=== PATIENT | female | born 1955 | race African-American/Black ===

== ENCOUNTER → 2018-01-16 | Outpatient (CLI) | payer BC ==
[~2018-01-16] MED LIST: DIAZEPAM 5 MG TABLET ONE
--- NOTE | 2018-01-16 13:33 | RADIOLOGY REPORT (SQ) ---
EXAM DESCRIPTION: MRI HEAD COMBO COMPLETED DATE/TIME: 01/16/2018 11:18 am REASON FOR STUDY: COGNITIVE IMPAIRMENT (R41.89) R41.89 OTH SYMPTOMS AND SIGNS W COGNITIVE FUNCTIONS AND AWAR COMPARISON: CT brain 07/01/2013 TECHNIQUE: Multiplanar imaging includes noncontrasted T1, T2, FLAIR, diffusion with ADC map and post gadolinium contrast T1 sequences. Images stored on PACS. CONTRAST TYPE AND DOSE: 15 mL Multihance. RENAL FUNCTION: GFR > 60. LIMITATIONS: None. FINDINGS: ANATOMY: No anomalies. Normal vascular flow voids. Pituitary fossa normal. CSF SPACES: Normal in size and contour. No hemorrhage. CEREBRUM: Sulci and gyri normal in size and contour. Normal white matter signal on FLAIR imaging. No evidence of hemorrhage, mass, or extraaxial fluid collection. No abnormal enhancement post contrast. POSTERIOR FOSSA: No signal alteration. No hemorrhage. No edema, masses, or mass effect. Internal darian tory canals, cerebellopontine angles, mastoids normal. No enhancing lesions. No abnormal enhancement post contrast. DIFFUSION IMAGING: Negative for acute or subacute infarction. ORBITS: No masses. Globes normal. PARANASAL SINUSES: No fluid levels. Mucosa normal. OTHER: No other significant finding. IMPRESSION: NORMAL MRI OF THE BRAIN WITHOUT AND WITH INTRAVENOUS GADOLINIUM CONTRAST. EVIDENCE OF ACUTE STROKE: NO. TECHNICAL DOCUMENTATION: JOB ID: [id number]- All Rights Reserved Reading location - IP/workstation name: [email or web address]
== END ==
LOC: RAD 01-12 07:15
PROVIDERS: ATTEND Psychiatry & Neurology Neurology
DX: R41.89 Other symptoms and signs involving cognitive functions and awareness (principal)
CPT/HCPCS: 82565; 70553; A9577

== ENCOUNTER 2018-08-10 05:13 | Emergency (ER) | payer BC ==
[2018-08-10 05:25] VITALS: BP 189/61
[2018-08-10] MEDS ORDERED: IBUPROFEN 600 MG TABLET PO ONE (05:46)
[2018-08-10] MEDS ORDERED: HYDROCODONE/ACETAMINOPHEN 5-325 MG (6 TAB/ER DISP) PO PRN (05:46)
--- NOTE | 2018-08-10 05:54 | ER Document Report ---
HPI - HPI Patient complains to provider of: Neck pain, left shoulder pain Time Seen by Provider: 08/10/18 05:28 Pain Level: 3 Context: Patient is a 63-year-old female that comes to the emergency department for chief complaint of 2 days of worsening tightness in her left upper shoulder and neck area, she states it is hard to turn her neck side to side or move without pain. She states it feels like she is having muscle spasms. 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 She denies any numbness, headache, incontinence, fever. She denies any other locations of pain. She was previously on blood pressure medication but has not been back to primary care to get a refill. She denies any other medical history. - NEURO Neurology: DENIES: Headache, Weakness, Vision blurred, Dizzinesss / Vertigo - REPRODUCTIVE Reproductive: DENIES: : Past Medical History - General Information source: Patient - Social History Smoking Status: Never Smoker Chew tobacco use (# tins/day): No Frequency of alcohol use: None Drug Abuse: None Lives with: Family Family History: Reviewed & Not Pertinent Patient has suicidal ideation: No Patient has homicidal ideation: No - Past Medical History Cardiac Medical History: Reports: Hx Hypertension Denies: Hx Coronary Artery Disease, Hx Heart Attack Pulmonary Medical History: Denies: Hx Asthma, Hx Bronchitis, Hx COPD, Hx Pneumonia Neurological Medical History: Denies: Hx Cerebrovascular Accident, Hx Seizures Renal/ Medical History: Denies: Hx Peritoneal Dialysis Musculoskeletal Medical History: Denies Hx Arthritis Past Surgical History: Reports: Hx Tubal Ligation. Denies: Hx Hysterectomy - Immunizations Hx Diphtheria, Pertussis, Tetanus Vaccination: Yes Vertical Provider Document - CONSTITUTIONAL General Appearance: WD/WN, No Apparent Distress - INFECTION CONTROL TRAVEL OUTSIDE OF THE [place] IN LAST 30 DAYS: No - HEENT HEENT: Atraumatic, Normal ENT Exam, Normocephalic - NECK Neck: Other - Left upper trapezius and left paracervical muscular tenderness with spasm, pain with movement of the neck laterally especially to the left, normal flexion and extension with minimal pain, full range of motion at the shoulder with some pain in the low back, normal strength, normal distal neurovascular exam, no midline tenderness, no saddle anesthesia, no signs of trauma. - RESPIRATORY Respiratory: Breath Sounds Normal, No Respiratory Distress - CARDIOVASCULAR Cardiovascular: Regular Rate, Regular Rhythm - GI/ABDOMEN Gastrointestinal: Abdomen Soft, Abdomen Non-Tender - BACK Back: Normal Inspection - MUSCULOSKELETAL/EXTREMETIES Musculoskeletal/Extremeties: MAEW, FROM, Non-Tender - NEURO Level of Consciousness: Awake, Alert, Appropriate - DERM Integumentary: Warm, Dry, No Rash Course - Re-evaluation Re-evalutation: Patient appears to have musculoskeletal strain and spasm, she does work in a job , this is very specific on her exam. No other concerning antibodies noted. Vital signs show hypertension, last time patient also had hypertension, patient admits that she was previously on a blood pressure medication but did not follow back up. As a result she was started on amlodipine, advised to quickly follow-up, she does have primary care and she states that she will. She denies headache, chest pain, or any other symptoms than her chief complaint tonight. - Vital Signs Vital signs: Temp Pulse Resp BP Pulse Ox 98.0 F 59 L 14 189/61 H 100 08/10/18 05:20 08/10/18 05:20 08/10/18 05:20 08/10/18 05:20 08/10/18 05:20 Discharge - Discharge Clinical Impression: Upper back pain on left side, Essential hypertension, Neck pain Condition: Stable Disposition: HOME, SELF-CARE Additional Instructions: Your evaluation is most consistent with a strained trapezius and paracervical muscles and a secondary muscle spasm. Apply heat to the area, do gentle stretches, continue ibuprofen 600 mg 4 times a day, take diazepam as prescribed for muscle relaxer (cannot drink alcohol, cannot take other sedating medications with this, cannot drive while taking this ). You have also been provided with pain medication and can take today while waiting for the pharmacy to open tomorrow. The muscle spasm should slowly release and this should slowly resolve. You have been prescribed amlodipine blood pressure medication, take this daily, follow-up within 1-2 weeks with primary care and have this adjusted. Return for any concerning symptoms including severe worsening pain, fever of 100.4 or greater, numbness, incontinence, or any other concerning or worsening symptoms. Prescriptions: Amlodipine Besylate [Norvasc 5 mg Tablet] 5 mg PO DAILY #30 tablet Diazepam [Valium 5 mg Tablet] 1 - 2 tab PO TID PRN #10 tablet PRN Reason: Forms: Return to Work
== END 2018-08-10 06:08 | disposition home or self-care (01) ==
LOC: ER 05:13
DX: M54.2 Cervicalgia (principal); M62.830 Muscle spasm of back; M54.89 Other dorsalgia; M54.5 Low back pain; I10 Essential (primary) hypertension; T46.1X6A Underdosing of calcium-channel blockers, initial encounter; Z91.128 Patient's intentional underdosing of medication regimen for other reason; Z91.14 Patient's other noncompliance with medication regimen
CPT/HCPCS: 99283

== ENCOUNTER 2018-08-12 03:57 | Emergency (ER) | payer BC ==
[2018-08-12 04:05] VITALS: BP 168/74
[2018-08-12] MEDS ORDERED: ACETAMINOPHEN 325 MG TABLET PO ONE (04:41)
[2018-08-12] MEDS ORDERED: IBUPROFEN 600 MG TABLET PO ONE (04:41)
--- NOTE | 2018-08-12 04:42 | ER Document Report ---
ED General - General Chief Complaint: Back Pain Stated Complaint: BACK PAIN Time Seen by Provider: 08/12/18 04:13 Mode of Arrival: Ambulatory TRAVEL OUTSIDE OF THE [place] IN LAST 30 DAYS: No - HPI Patient complains to provider of: neck and back pain Onset: Last week Notes: [age]-year-old female with hypertension presents to the emergency department with neck and back pain on the left side that started about 1 week ago. Patient was seen on 08/10/18 here for the same complaint and was given diazepam 5 mg to be taken as needed for spasm. She endorses pain has not improved since then. She states pain is located in her left lower trapezius area and radiates down to her mid back on the left side very specific. She denies any urinary tension, patient denies headache, numbness, tingling. Patient does say when she takes the diazepam her symptoms improve. 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 - Related Data Allergies/Adverse Reactions: aspirin [Aspirin] Allergy (Verified 08/10/18 05:16) Penicillins Allergy (Verified 08/10/18 05:16) Past Medical History - Social History Smoking Status: Never Smoker Family History: Reviewed & Not Pertinent - Past Medical History Cardiac Medical History: Reports: Hx Hypertension Denies: Hx Coronary Artery Disease, Hx Heart Attack Pulmonary Medical History: Denies: Hx Asthma, Hx Bronchitis, Hx COPD, Hx Pneumonia Neurological Medical History: Denies: Hx Cerebrovascular Accident, Hx Seizures Renal/ Medical History: Denies: Hx Peritoneal Dialysis Musculoskeletal Medical History: Denies Hx Arthritis Past Surgical History: Reports: Hx Tubal Ligation. Denies: Hx Hysterectomy - Immunizations Hx Diphtheria, Pertussis, Tetanus Vaccination: Yes Review of Systems - Review of Systems Constitutional: No symptoms reported EENT: No symptoms reported Cardiovascular: No symptoms reported Respiratory: No symptoms reported Gastrointestinal: No symptoms reported Genitourinary: No symptoms reported Female Genitourinary: No symptoms reported Musculoskeletal: See HPI Skin: No symptoms reported Hematologic/Lymphatic: No symptoms reported Neurological/Psychological: No symptoms reported Physical Exam - Vital signs Vitals: Temp Pulse Resp BP Pulse Ox 97.7 F 66 18 168/74 H 97 08/12/18 04:03 08/12/18 04:03 08/12/18 04:03 08/12/18 04:03 08/12/18 04:03 Interpretation: Normal - General General appearance: Appears well, Alert - HEENT Head: Normocephalic, Atraumatic Eyes: Normal Pupils: PERRL - Respiratory Respiratory status: No respiratory distress Chest status: Nontender Breath sounds: Normal Chest palpation: Normal - Cardiovascular Rhythm: Regular Heart sounds: Normal auscultation Murmur: No - Abdominal Inspection: Normal Distension: No distension Bowel sounds: Normal Tenderness: Nontender Organomegaly: No organomegaly - Back Back: Tender - Muscle tenderness medial to scapula in region of lower trapezius. Radiates down left mid back - Extremities General upper extremity: Normal inspection, Nontender, Normal color, Normal ROM , Normal temperature General lower extremity: Normal inspection, Nontender, Normal color, Normal ROM , Normal temperature, Normal weight bearing. 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 Along with taking Motrin 600 mg every 6 hours [id number] for the next 72 hours, you can take Tylenol 1000 mg every 6 hours with it. Please take the Motrin with food and/or milk. If your back pain is severe take the rest of your Valium as needed. You are also getting a prescription for Flexeril which you can take after the Valium is completed. Please return to the emergency department if you develop severe pain, fever, inability to urinate, or have any additional concerns. Prescriptions: Cyclobenzaprine HCl [Flexeril 5 mg Tablet] 1 tab PO TID PRN #15 tablet PRN Reason: Forms: Return to Work Referrals: RANJIT HUGHES MD [Primary Care Provider] - Follow up as needed
== END 2018-08-12 05:12 | disposition home or self-care (01) ==
LOC: ER 03:57
DX: M54.89 Other dorsalgia (principal); I10 Essential (primary) hypertension; Z88.6 Allergy status to analgesic agent; Z88.0 Allergy status to penicillin
CPT/HCPCS: 99283

== ENCOUNTER 2018-08-13 10:24 | Emergency (ER) | payer BC ==
[2018-08-13 10:33] VITALS: BP 150/72
--- NOTE | 2018-08-13 10:54 | ER Document Report ---
ED General - General Mode of Arrival: Ambulatory Information source: Patient TRAVEL OUTSIDE OF THE [place] IN LAST 30 DAYS: No - General Chief Complaint: Shoulder Pain Stated Complaint: LEFT SIDE PAIN Time Seen by Provider: 08/13/18 10:32 Notes: 63-year-old female who presents to the emergency department today with complaints of a 4-5 day history of left shoulder and left-sided back pain. Patient has been seen here at this facility twice for this since onset. Patient was given Valium and Flexeril during those visits. Patient states that "one of the medicines" seemed to completely resolve her pain but she cannot remember which one. Patient states she has also tried icy hot, Aspercreme, Whiteface balm, and warm compresses to the area with some relief. Patient states that the pain seems to get worse at night, especially when lying down on the couch. Patient denies any numbness, tingling, shortness of breath, nausea, vomiting, abdominal pain, chest pain, blurry vision, accident or trauma to the area, or new or unusual activity. (CORIN ROJAS) - Related Data Allergies/Adverse Reactions: aspirin [Aspirin] Allergy (Verified 08/12/18 05:08) Penicillins Allergy (Verified 08/12/18 05:08) Past Medical History - General Information source: Patient - Social History Smoking Status: Never Smoker Cigarette use (# per day): No Chew tobacco use (# tins/day): No Frequency of alcohol use: None Drug Abuse: None Lives with: Family Family History: Reviewed & Not Pertinent Patient has suicidal ideation: No Patient has homicidal ideation: No - Past Medical History Cardiac Medical History: Reports: Hx Hypertension Past Surgical History: Reports: Hx Tubal Ligation - Immunizations Hx Diphtheria, Pertussis, Tetanus Vaccination: Yes Review of Systems - Review of Systems Constitutional: No symptoms reported EENT: denies: Blurred vision Cardiovascular: denies: Chest pain Respiratory: denies: Short of breath Gastrointestinal: denies: Abdominal pain, Nausea, Vomiting Genitourinary: No symptoms reported Female Genitourinary: No symptoms reported Musculoskeletal: See HPI, Other - Left upper back, left shoulder pain Skin: No symptoms reported Hematologic/Lymphatic: No symptoms reported Neurological/Psychological: denies: Numbness, Tingling -: Yes All other systems reviewed and negative Physical Exam - Vital signs Vitals: Temp Pulse Resp BP Pulse Ox 97.7 F 70 18 150/72 H 100 08/13/18 10:32 08/13/18 10:32 08/13/18 10:32 08/13/18 10:32 08/13/18 10:32 - Notes Notes: PHYSICAL EXAM GENERAL: Alert, interacts well. No acute distress. HEAD: Normocephalic, atraumatic. EYES: Pupils equal, round, and reactive to light. Extraocular movements intact. ENT: Oral mucosa moist, tongue midline. NECK: Full range of motion. Supple. Trachea midline. No carotid bruits. LUNGS: Clear to auscultation bilaterally, no wheezes, rales, or rhonchi. No respiratory distress. HEART: Regular rate and rhythm. No murmurs, gallops, or rubs. BACK: No midline bony tenderness to palpation. No step-offs or deformities. Bilateral muscle spasm at the level of the shoulders without any tenderness on palpation. Left trapezius musculature spasm without tenderness to palpation. Left-sided thoracic paraspinal musculature tenderness with palpation. EXTREMITIES: Moves all 4 extremities spontaneously. Restricted range of motion when elevating the left arm. NEUROLOGICAL: Alert and oriented x3. Normal speech. Cranial nerves II through XII grossly intact bilaterally. PSYCH: Normal affect, normal mood. SKIN: Warm, dry, normal turgor. No rashes or lesions noted. (CORIN ROJAS) Course - Re-evaluation Re-evalutation: 08/13/18 10:56 EKG was performed and did not reveal any ischemia. This was performed based off of the patient's age and the fact that she has been having neck and shoulder and back pain. Pain is reproducible on examination in the lower aspect of her left trapezius muscle. She has no shortness of breath, no chest pain, no numbness, tingling or weakness. I find the possibility of a spontaneous pneumothorax, pneumonia or lung mass causing this pain to be very low. No indication for chest x-ray at this time as she is having no shortness of breath and no chest pain. Patient's blood pressure is responding well to the blood pressure medication that was prescribed on the last visit. Patient already was prescribed Valium and Flexeril for her pain. Patient has been written off work for the next 2 days, instructed on stretches and massage therapy. Discharge to home. (MERT AG) - Vital Signs Vital signs: Temp Pulse Resp BP Pulse Ox 97.7 F 70 18 150/72 H 100 08/13/18 10:32 08/13/18 10:32 08/13/18 10:32 08/13/18 10:32 08/13/18 10:32 Discharge - Discharge Clinical Impression: Trapezius muscle spasm Condition: Stable Disposition: HOME, SELF-CARE Additional Instructions: Muscle Strain You have strained a muscle -- torn the fibers within the muscle. This often occurs with strenuous exertion, or during an injury that suddenly stretches the muscle. The seriousness of a strain varies. Some strains heal within days, others cause problems for months. X-rays cannot show a muscle strain. X-rays are taken only if symptoms suggest that a fracture could be present. The usual treatment of a muscle strain is rest and ice packs. Sometimes, a sling, splint, or crutches may be necessary to rest the muscle. The muscle can be used again once pain subsides. Severe strains require a special exercise and stretching program to prevent permanent stiffness and disability. Your doctor will advise you if this will be necessary. Call the doctor immediately if pain or swelling becomes severe, or if numbness or discoloration develop. Please stop sleeping on the couch, please gently stretch her muscles several times a day. Please see if he can find somebody to rub your back where the muscles hurt. Please take the next 2 days off from work and then return on Tuesday. Use the Flexeril and ibuprofen as you were directed on your last visit. Please return to the emergency department for chest pain, trouble breathing, numbness, tingling or weakness. Forms: Return to Work Referrals: RANJIT HUGHES MD [Primary Care Provider] - Follow up as needed Scribe Attestation: 08/13/18 11:33 I personally performed the services described in the documentation, reviewed and edited the documentation which was dictated to the scribe in my presence, and it accurately records my words and actions. (MERT AG) Scribe Documentation - Scribe Written by Cheribe:: Carolina Brasher, 08/13/2018 1117 acting as scribe for :: Delonte
--- NOTE | 2018-08-13 14:00 | EKG REPORT ---
SEVERITY:- ABNORMAL ECG - SINUS RHYTHM FIRST DEGREE AV BLOCK ABNRM R PROG, CONSIDER ASMI OR LEAD PLACEMENT : Confirmed by: Cyndy Neff MD 13-Aug-2018 13:59:06
== END 2018-08-13 10:57 | disposition home or self-care (01) ==
LOC: ER 10:24
DX: M62.830 Muscle spasm of back (principal); M25.512 Pain in left shoulder; Z79.899 Other long term (current) drug therapy; I10 Essential (primary) hypertension
CPT/HCPCS: 93005; 93010; 99283

== ENCOUNTER 2019-10-18 13:54 | Observation (INO) | payer BC ==
--- NOTE | 2019-10-18 14:04 | ER Document Report ---
ED Medical Screen (RME) <KYLE ROB JR - Last Filed: 10/18/19 14:46> - General Mode of Arrival: Wheelchair Information source: Patient TRAVEL OUTSIDE OF THE [place] IN LAST 30 DAYS: No <MARYAM CALLAHAN - Last Filed: 10/18/19 22:31> - General Chief Complaint: Dizziness Stated Complaint: DIZZINESS Time Seen by Provider: 10/18/19 13:59 Notes: 64-year-old female presented to ED for strokelike symptoms. She was brought to the emergency room by the health nurse for strokelike symptoms. 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 She states she does have a history of high blood pressure and has not been taking her medications today. She was attempting to ambulate and noted that she was unsteady and was confused. Patient was immediately taken to CT and a stroke work-up was started. I have greeted and performed a rapid initial assessment of this patient. A comprehensive ED assessment and evaluation of the patient, analysis of test results and completion of medical decision making process will be conducted by an additional ED providers. (MARYAM CALLAHAN) - Related Data Allergies/Adverse Reactions: aspirin [Aspirin] Allergy (Verified 10/18/19 14:01) Penicillins Allergy (Verified 10/18/19 14:01) Past Medical History - Past Medical History Cardiac Medical History: Reports: Hx Hypertension Denies: Hx Coronary Artery Disease, Hx Heart Attack Pulmonary Medical History: Denies: Hx Asthma, Hx Bronchitis, Hx COPD, Hx Pneumonia Neurological Medical History: Denies: Hx Cerebrovascular Accident, Hx Seizures Renal/ Medical History: Denies: Hx Peritoneal Dialysis Musculoskeltal Medical History: Denies Hx Arthritis Past Surgical History: Reports: Hx Tubal Ligation. Denies: Hx Hysterectomy - Immunizations Hx Diphtheria, Pertussis, Tetanus Vaccination: Yes <MARYAM CALLAHAN - Last Filed: 10/18/19 22:31> Physical Exam - Vital signs Vitals: Temp Pulse Resp BP Pulse Ox 97.5 F 63 16 182/80 H 100 10/18/19 14:02 10/18/19 14:02 10/18/19 14:02 10/18/19 14:02 10/18/19 14:02 Course - Laboratory Result Diagrams: 10/18/19 14:24 10/18/19 14:24 <KYLE ROB JR - Last Filed: 10/18/19 14:46> - Laboratory Result Diagrams: 10/18/19 14:24 10/18/19 14:24 <MARYAM CALLAHAN - Last Filed: 10/18/19 22:31> - Vital Signs Vital signs: Temp Pulse Resp BP Pulse Ox 97.9 F 68 18 156/78 H 98 10/18/19 20:36 10/18/19 20:36 10/18/19 20:36 10/18/19 20:36 10/18/19 20:36 - Laboratory Laboratory results interpreted by me: 10/18/19 10/18/19 10/18/19 14:24 14:24 14:55 RDW 14.2 H LDL Cholesterol Direct 106 H Urine Blood SMALL H Ur Leukocyte Esterase SMALL H Doctor's Discharge <KYLE ROB JR - Last Filed: 10/18/19 14:46> <MARYAM CALLAHAN - Last Filed: 10/18/19 22:31> - Discharge Clinical Impression: TIA (transient ischemic attack), Hypertension Condition: Good Disposition: ADMITTED INPATIENT
--- NOTE | 2019-10-18 14:31 | RADIOLOGY REPORT (SQ) ---
EXAM DESCRIPTION: CHEST SINGLE VIEW COMPLETED DATE/TIME: 10/18/2019 2:20 pm REASON FOR STUDY: Stroke alert COMPARISON: None. EXAM PARAMETERS: NUMBER OF VIEWS: One view. TECHNIQUE: Single frontal radiographic view of the chest acquired. RADIATION DOSE: NA LIMITATIONS: None. FINDINGS: LUNGS AND PLEURA: No opacities, masses or pneumothorax. No pleural effusion. MEDIASTINUM AND HILAR STRUCTURES: No masses. Contour normal. HEART AND VASCULAR STRUCTURES: Heart normal in size. Normal vasculature. BONES: No acute findings. HARDWARE: None in the chest. OTHER: No other significant finding. IMPRESSION: NO ACUTE RADIOGRAPHIC FINDING IN THE CHEST. TECHNICAL DOCUMENTATION: JOB ID: [id number] [employer]- All Rights Reserved Reading location - IP/workstation name: [email or web address]
--- NOTE | 2019-10-18 14:36 | RADIOLOGY REPORT (SQ) ---
EXAM DESCRIPTION: CT HEAD WITHOUT COMPLETED DATE/TIME: 10/18/2019 2:13 pm REASON FOR STUDY: Stroke alert COMPARISON: None. TECHNIQUE: Axial images acquired through the brain without intravenous contrast. Images reviewed wi th bone, brain and subdural windows. Additional sagittal and coronal reconstructions were generated. Images stored on PACS. All CT scanners at this facility use dose modulation, iterative reconstruction, and/or weight based d osing when appropriate to reduce radiation dose to as low as reasonably achievable (ALARA). [facility]: Dose Right [facility]: CareDose [facility]: Dose Right [facility]: Teradose 4D [facility]: M2 Connections RADIATION DOSE: CT Rad equipment meets quality standard of care and radiation dose reduction techniq ues were employed. CTDIvol: 53.2 mGy. DLP: 1097 mGy-cm. mGy. LIMITATIONS: None. FINDINGS: VENTRICLES: Normal size and contour. CEREBRUM: No masses. No hemorrhage. No midline shift. No evidence for acute infarction. Normal gra y/white matter differentiation. No areas of low density in the white matter. CEREBELLUM: No masses. No hemorrhage. No alteration of density. No evidence for acute infarction. EXTRAAXIAL SPACES: No fluid collections. No masses. ORBITS AND GLOBE: No intra- or extraconal masses. Normal contour of globe without masses. CALVARIUM: No fracture. PARANASAL SINUSES: No fluid or mucosal thickening. SOFT TISSUES: No mass or hematoma. OTHER: No other significant finding. IMPRESSION: NORMAL BRAIN CT WITHOUT CONTRAST. EVIDENCE OF ACUTE STROKE: NO. COMMENT: Pertinent findings on the imaging study reported as a CRITICAL RESULT to LIANE MCKEON at14: 16 on 10/18/2019. Category of Critical Result: CT CODE STROKE Quality ID # [id number]: Final reports with documentation of one or more dose reduction techniques (e.g., Au tomated exposure control, adjustment of the mA and/or kV according to patient size, use of iterative reconstruction technique) TECHNICAL DOCUMENTATION: JOB ID: [id number]- All Rights Reserved Reading location - IP/workstation name: [email or web address]
[2019-10-18 14:38] LABS: ABSOLUTE EOSINOPHILS # (AUTO) 0.1 10^3/uL (0.0-0.6); ABSOLUTE LYMPHOCYTES (AUTO) 1.9 10^3/uL (0.5-4.7); HEMOGLOBIN 13.4 g/dL (12.0-15.5); TOTAL CELLS COUNTED % (AUTO) 100 %
[2019-10-18 14:42] LABS: ABSOLUTE MONOCYTES (AUTO) 0.5 10^3/uL (0.1-1.4); ABSOLUTE NEUT (AUTO) 2.6 10^3/uL (1.7-8.2); BASOPHILS % (AUTO) 0.5 % (0-2); HEMATOCRIT 40.2 % (36.0-47.0); LYMPHOCYTES % (AUTO) 38.1 % (13-45); MEAN CORPUSCULAR HGB CONC 33.4 g/dL (32.0-36.0); MEAN CORPUSCULAR VOLUME 87 fl (80-97); PLATELET COUNT 181 10^3/uL (150-450); RED BLOOD COUNT 4.63 10^6/uL (3.72-5.28); RED CELL DISTRIBUTION WIDTH 14.2 % (11.5-14.0); SEGMENTED NEUTROPHILS % (AUTO) 50.4 % (42-78); WHITE BLOOD COUNT 5.1 10^3/uL (4.0-10.5)
[2019-10-18 14:49] LABS: INTERNATIONAL RATION (INR) 1.01
[2019-10-18 14:54] LABS: PROTHROMBIN TIME 13.3 SEC (11.4-15.4)
[2019-10-18 14:58] LABS: ALBUMIN 4.2 g/dL (3.5-5.0); ALKALINE PHOSPHATASE 76 U/L (38-126); ANION GAP 5 (5-19); ASPARTATE AMINO TRANSFERASE 22 U/L (14-36); BILIRUBIN,TOTAL 0.7 mg/dL (0.2-1.3); BLOOD UREA NITROGEN 18 mg/dL (7-20); CALCIUM 9.3 mg/dL (8.4-10.2); CARBON DIOXIDE 30 mmol/L (22-30); CHLORIDE 104 mmol/L (98-107); CREATINE KINASE 88 U/L (30-135); GLUCOSE 78 mg/dL (75-110); POTASSIUM 4.1 mmol/L (3.6-5.0); TOTAL PROTEIN 7.7 g/dL (6.3-8.2)
[2019-10-18 15:15] LABS: CREATINE KINASE MB 1.12 ng/mL (<4.55)
[2019-10-18 15:16] LABS: TROPONIN I < 0.012 ng/mL
--- NOTE | 2019-10-18 15:18 | ER Document Report ---
ED Dizziness/Weakness - General Chief Complaint: S/S of Possible Stroke Stated Complaint: DIZZINESS Time Seen by Provider: 10/18/19 13:59 Primary Care Provider: RANJIT HUGHES MD [Primary Care Provider] - Follow up as needed Mode of Arrival: Wheelchair Information source: Patient - And also from Angelica Pascual who saw the patient as she bent over and stood back up she became quite dizzy and had glassy eyes for least 20 minutes. Patient was very drowsy but had understandable speech for 20 minutes. Huma BRICE was called and she advised transfer to the ER. Patient has been out of her Norvas for 2 days with a blood pressure 186/82 upon presentation. I saw the patient shortly after arrival and she had no deficits no speech problems and memory oriented x4 TRAVEL OUTSIDE OF THE [place] IN LAST 30 DAYS: No - HPI Onset/Duration: Sudden Quality of pain: Other - Lower extremity heaviness Severity: Mild Pain Level: 1 Associated symptoms: Loss of strength - Related Data Allergies/Adverse Reactions: aspirin [Aspirin] Allergy (Verified 10/18/19 14:01) Penicillins Allergy (Verified 10/18/19 14:01) Past Medical History - General Information source: Patient - Social History Smoking Status: Never Smoker Cigarette use (# per day): No Chew tobacco use (# tins/day): No Smoking Education Provided: No Frequency of alcohol use: Rare - Drink in the past but not recently Drug Abuse: None Lives with: Family Family History: Reviewed & Not Pertinent Patient has suicidal ideation: No Patient has homicidal ideation: No - Past Medical History Cardiac Medical History: Reports: Hx Hypertension Denies: Hx Coronary Artery Disease, Hx Heart Attack Pulmonary Medical History: Denies: Hx Asthma, Hx Bronchitis, Hx COPD, Hx Pneumonia Neurological Medical History: Denies: Hx Cerebrovascular Accident, Hx Seizures Renal/ Medical History: Denies: Hx Peritoneal Dialysis Musculoskeletal Medical History: Denies Hx Arthritis Past Surgical History: Reports: Hx Tubal Ligation. Denies: Hx Hysterectomy - Immunizations Hx Diphtheria, Pertussis, Tetanus Vaccination: Yes Review of Systems - Review of Systems Constitutional: Malaise, Weakness EENT: No symptoms reported Cardiovascular: No symptoms reported Respiratory: No symptoms reported Gastrointestinal: No symptoms reported Genitourinary: No symptoms reported Musculoskeletal: No symptoms reported Skin: No symptoms reported Hematologic/Lymphatic: No symptoms reported Neurological/Psychological: Confusion - And confusion for 20 minutes, Sensory change, Weakness, Gait changes - Left lower leg heaviness and weakness Physical Exam - Vital signs Vitals: Temp Pulse Resp BP Pulse Ox 97.5 F 63 16 182/80 H 100 10/18/19 14:02 10/18/19 14:02 10/18/19 14:02 10/18/19 14:02 10/18/19 14:02 Interpretation: Hypertensive - HEENT Head: Normocephalic Eyes: Normal Conjunctiva: Normal Cornea: Normal Extraocular movements intact: Yes Eyelashes: Normal Pupils: PERRL Fundascopic: Normal Ears: Normal Sinus: Normal Nasal: Normal Mouth/Lips: Normal Mucous membranes: Normal Pharynx: Normal Neck: Normal - Respiratory Respiratory status: No respiratory distress Chest status: Nontender Breath sounds: Normal Chest palpation: Normal - Cardiovascular Rhythm: Regular Heart sounds: Normal auscultation Murmur: No Friction rub: No Walt's crunch: No - Abdominal Inspection: Normal Distension: No distension Bowel sounds: Normal Tenderness: Nontender Organomegaly: No organomegaly - Back Back: Normal - Extremities General upper extremity: Normal inspection General lower extremity: Other - weakness left lower plantarflexion and dorsiflexion to the right dominant foot - Neurological Neuro grossly intact: Yes Cognition: Normal Orientation: AAOx4 [place] Coma Scale Eye Opening: Spontaneous [place] Coma Scale Verbal: Oriented Domonique Coma Scale Motor: Obeys Commands [place] Coma Scale Total: 15 Speech: Normal Cranial nerves: Normal Cerebellar coordination: Normal - Psychological Associated symptoms: Normal affect - Skin Skin Temperature: Warm Skin Moisture: Dry Course - Vital Signs Vital signs: Temp Pulse Resp BP Pulse Ox 97.7 F 68 15 185/81 H 100 10/18/19 14:18 10/18/19 14:15 10/18/19 14:32 10/18/19 14:32 10/18/19 14:32 - Laboratory Result Diagrams: 10/18/19 14:24 10/18/19 14:24 Laboratory results interpreted by me: 10/18/19 14:24 RDW 14.2 H - Diagnostic Test Radiology reviewed: Reports reviewed - EKG Interpretation by [place] EKG shows normal: Sinus rhythm Critical Care Note - Critical Care Note Total time excluding time spent on procedures (mins): 90 Comments: Discussed this case with Dr.Lotf Barajas who advised Dr. Beni Bowers and upon being called at 1520 he advises IMCU I advised patient and of the blood work results as well as the CT scan reports and the fact that she will be admitted to [facility] Discharge - Discharge Clinical Impression: TIA (transient ischemic attack) Hypertension Qualifiers: Hypertension type: unspecified Qualified Code(s): I10 - Essential (primary) hypertension Condition: Good Disposition: ADMITTED INPATIENT Admitting Provider: Tish (Hospitalist) Unit Admitted: IMCU Referrals: RANJIT HUGHES MD [Primary Care Provider] - Follow up as needed
[2019-10-18] MEDS ORDERED: DILTIAZEM HCL INJ 25 MG/5 ML VIAL IV ONE (15:31)
[2019-10-18 15:46] LABS: APPEARANCE,URINE SLIGHTLY-CLOUDY; BILIRUBIN,URINE NEGATIVE (NEGATIVE); COLOR,URINE YELLOW; GLUCOSE, URINE NEGATIVE (NEGATIVE); KETONES,URINE NEGATIVE (NEGATIVE); LEUKOCYTE ESTERASE,URINE SMALL (NEGATIVE); NITRITE,URINE NEGATIVE (NEGATIVE); PROTEIN,URINE NEGATIVE (NEGATIVE); URINE SPECIFIC GRAVITY 1.011; UROBILINOGEN,URINE NEGATIVE mg/dL (<2.0)
[2019-10-18] MEDS ORDERED: HYDRALAZINE HCL INJ/PF 20 MG/1 ML SDV IV PRN (15:56)
[2019-10-18 16:00] LABS: URINE AMPHETAMINES SCREEN NEGATIVE; URINE BARBITURATES SCREEN NEGATIVE; URINE BENZODIAZEPINES SCREEN NEGATIVE; URINE COCAINE SCREEN NEGATIVE; URINE MARIJUANA (THC) SCREEN NEGATIVE; URINE METHADONE SCREEN NEGATIVE; URINE PHENCYCLIDINE SCREEN NEGATIVE
[2019-10-18] MEDS ORDERED: LORAZEPAM 1 MG TABLET PO ONE (16:09)
[2019-10-18 16:16] LABS: CHOLESTEROL 170.37 mg/dL (0-200); TRIGLYCERIDES 93 mg/dL (<150)
[2019-10-18 16:27] LABS: DIRECT LDL 106 mg/dL (<100)
--- NOTE | 2019-10-18 16:45 | PDOC H&P ---
History of Present Illness Admission Date/PCP: 10/18/19 15:55 RANJIT HUGHES MD Patient complains of: dizziness History of Present Illness: JOSE A MENON is a 64 year old female with no significant past medical history aside from a history of hypertension on amlodipine who was brought to the ER due to acute confusion and dizziness. 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 Reportedly, she was assisted by staff and was found to have a very unsteady gait. She was also noted to be confused for a few minutes. Patient also initially reported left leg weakness which completely resolved after a few minutes. In the ER, she was noted to be hypertensive with eyes blood pressure at 187/78. She was ordered at her baseline in the ER. Upon encounter, she appears comfort able and is AO x4. She has a completely normal neurologic exam with no motor or sensory deficits. She does states she has not been taking her antihypertensives at home as she has not refilled her amlodipine for 3 days. Past Medical History Cardiac Medical History: Reports: Hypertension Denies: Coronary Artery Disease, Myocardial Infarction Pulmonary Medical History: Denies: Asthma, Bronchitis, Chronic Obstructive Pulmonary Disease (COPD), Pneumonia Neurological Medical History: Denies: Seizures Musculoskeltal Medical History: Denies: Arthritis Hematology: Reports: Anemia - yrs ago Past Surgical History Past Surgical History: Reports: Tubal Ligation Denies: Hysterectomy Social History Lives with: Family Smoking Status: Never Smoker Family History Family History: Reviewed & Not Pertinent Parental Family History Reviewed: Yes - no premature CAD Children Family History Reviewed: No Sibling(s) Family History Reviewed.: No Medication/Allergy Home Medications: Amlodipine Besylate [Norvasc 5 mg Tablet] 5 mg PO DAILY #30 tablet 08/10/18 Allergies/Adverse Reactions: aspirin [Aspirin] Allergy (Verified 10/18/19 14:01) Penicillins Allergy (Verified 10/18/19 14:01) Review of Systems All systems: reviewed and no additional remarkable complaints except as stated - as mentioned in HPI Physical Exam Vital Signs: Temp Pulse Resp BP Pulse Ox 97.7 F 68 22 H 174/65 H 100 10/18/19 14:18 10/18/19 14:15 10/18/19 15:17 10/18/19 15:17 10/18/19 15:17 Intake & Output 10/17/19 10/18/19 10/19/19 06:59 06:59 06:59 Weight 214 lb 11.684 oz General appearance: PRESENT: no acute distress, well-developed, well-nourished Head exam: PRESENT: atraumatic, normocephalic Eye exam: PRESENT: conjunctiva pink, EOMI, PERRLA. ABSENT: scleral icterus Ear exam: PRESENT: normal external ear exam Mouth exam: PRESENT: moist, tongue midline Neck exam: ABSENT: carotid bruit, JVD, lymphadenopathy, thyromegaly Respiratory exam: PRESENT: clear to auscultation santiago. ABSENT: rales, rhonchi, wheezes Cardiovascular exam: PRESENT: RRR. ABSENT: diastolic murmur, rubs, systolic murmur Pulses: PRESENT: normal dorsalis pedis pul GI/Abdominal exam: PRESENT: normal bowel sounds, soft. ABSENT: distended, guarding, mass, organolmegaly, rebound, tenderness Rectal exam: PRESENT: deferred Extremities exam: PRESENT: full ROM. ABSENT: calf tenderness, clubbing, pedal edema Neurological exam: PRESENT: alert, awake, oriented to person, oriented to place, oriented to time, oriented to situation, CN II-XII grossly intact. ABSENT: motor sensory deficit Results Laboratory Results: 10/18/19 14:24 10/18/19 14:24 10/18/19 10/18/19 10/18/19 14:24 14:24 14:55 WBC 5.1 RBC 4.63 Hgb 13.4 Hct 40.2 MCV 87 MCH 29.0 MCHC 33.4 RDW 14.2 H Plt Count 181 Seg Neutrophils % 50.4 Sodium 139.3 Potassium 4.1 Chloride 104 Carbon Dioxide 30 Anion Gap 5 BUN 18 Creatinine 0.91 Est GFR ( Amer) > 60 Glucose 78 Calcium 9.3 Total Bilirubin 0.7 AST 22 Alkaline Phosphatase 76 Total Protein 7.7 Albumin 4.2 Urine Color YELLOW Urine Appearance SLIGHTLY-CLOUDY Urine pH 6.0 Ur Specific [place] 1.011 Urine Protein NEGATIVE Urine Glucose (UA) NEGATIVE Urine Ketones NEGATIVE Urine Blood SMALL H Urine Nitrite NEGATIVE Ur Leukocyte Esterase SMALL H Urine WBC (Auto) 1 Urine RBC (Auto) 1 10/18/19 10/18/19 14:24 14:24 Creatine Kinase 88 CK-MB (CK-2) 1.12 Troponin I < 0.012 Impressions: Chest X-Ray 10/18/19 14:00 IMPRESSION: NO ACUTE RADIOGRAPHIC FINDING IN THE CHEST. Head CT 10/18/19 14:00 IMPRESSION: NORMAL BRAIN CT WITHOUT CONTRAST. EVIDENCE OF ACUTE STROKE: NO. Assessment and Plan - Diagnosis (1) TIA (transient ischemic attack) Is this a current diagnosis for this admission?: Yes Plan: Hypertensive urgency likely contributing to transient confusion and reported left leg weakness. No neurologic deficit upon your exam. She was given IV Cardizem in the ER. Will restart patient on her amlodipine. Will optimize blood pressure control. Start Plavix. We will check a carotid Doppler and lipid panel as well. (2) Hypertensive urgency Is this a current diagnosis for this admission?: Yes Plan: Will be restarted on her amlodipine. She was given IV Cardizem in the ER. Will add IV hydralazine PRN. - Time Time Spent with patient: 25-34 minutes
--- NOTE | 2019-10-18 17:22 | RADIOLOGY REPORT (SQ) ---
EXAM DESCRIPTION: MRI HEAD WITHOUT COMPLETED DATE/TIME: 10/18/2019 5:06 pm REASON FOR STUDY: ms changes COMPARISON: CT brain 10/18/2019. TECHNIQUE: Multiplanar imaging includes non-contrasted T1, T2, FLAIR, and diffusion with ADC map seq uences. Images stored on PACS. LIMITATIONS: Mildly limiting motion artifact on some sequences. FINDINGS: ANATOMY: No anomalies. Normal vascular flow voids. Pituitary fossa normal. CSF SPACES: Normal in size and contour. No hemorrhage. CEREBRUM: Sulci and gyri normal in size and contour. Normal white matter signal on FLAIR imaging. No evidence of hemorrhage, mass, or extraaxial fluid collection. POSTERIOR FOSSA: No signal alteration. No hemorrhage. No edema, masses or mass effect. Internal darian tory canals, cerebello-pontine angles, mastoids normal. DIFFUSION IMAGING: Negative for acute or sub-acute infarction. ORBITS: No masses. Globes normal. PARANASAL SINUSES: No fluid levels. Mucosa normal. OTHER: No other significant finding. IMPRESSION: NORMAL MRI OF THE BRAIN WITHOUT INTRAVENOUS GADOLINIUM CONTRAST. EVIDENCE OF ACUTE STROKE: NO. TECHNICAL DOCUMENTATION: JOB ID: [id number]- All Rights Reserved Reading location - IP/workstation name: [email or web address]
[2019-10-18] MEDS: AMLODIPINE BESYLATE 5 MG TABLET PO SCH (17:58)
[2019-10-18] MEDS: CLOPIDOGREL BISULFATE 75 MG TABLET PO SCH (17:58)
--- NOTE | 2019-10-18 19:44 | RADIOLOGY REPORT (SQ) ---
EXAM DESCRIPTION: CAROTID DOPPLER COMPLETED DATE/TIME: 10/18/2019 7:27 pm REASON FOR STUDY: tia COMPARISON: None. TECHNIQUE: Grayscale ultrasound, Doppler velocity and spectra, and color Doppler images acquired of the extra-cranial carotid and vertebral arteries. Images stored on PACS. LIMITATIONS: None. FINDINGS: RIGHT CAROTID CCA Velocities: Within normal limits. ICA Velocities Peak systolic 87 cm/s. End diastolic 20 cm/s. Proximal ICA/CCA peak systolic ratio 1.3. There is some shadowing plaque in the ICA and ECA. LEFT CAROTID CCA Velocities: Within normal limits. ICA Velocities Peak systolic 75 cm/s. End diastolic 13 cm/s. Proximal ICA/CCA peak systolic ratio 0.9. There is shadowing plaque in the ICA and ECA. VERTEBRAL ARTERIES: Antegrade flow. Normal waveforms. SUBCLAVIAN ARTERIES: No finding. OTHER: No other significant finding. IMPRESSION: NO HEMODYNAMICALLY SIGNIFICANT STENOSIS. COMMENT: Quality ID #[id number]: Velocity criteria are extrapolated from the diameter data as defined by t he Society of Radiologists in Ultrasound Consensus Conference. Radiology 2003: 229; 340-346. TECHNICAL DOCUMENTATION: JOB ID: [id number] [employer]- All Rights Reserved Reading location - IP/workstation name: [email or web address]
[2019-10-18] MEDS ORDERED: ATORVASTATIN CALCIUM 40 MG TABLET PO SCH (22:00)
[2019-10-18] MEDS: HEPARIN SOD (PORCINE) 5,000 UNIT/ML 1 ML VIAL SUBCUT SCH (22:17)
[2019-10-19] MEDS: HEPARIN SOD (PORCINE) 5,000 UNIT/ML 1 ML VIAL SUBCUT SCH ×2 (05:19→14:08)
[2019-10-19] MEDS: AMLODIPINE BESYLATE 5 MG TABLET PO SCH (09:59)
[2019-10-19] MEDS: CLOPIDOGREL BISULFATE 75 MG TABLET PO SCH (09:59)
[2019-10-19 12:21] VITALS: BP 159/76
--- NOTE | 2019-10-19 13:05 | EKG REPORT ---
SEVERITY:- ABNORMAL ECG - SINUS RHYTHM VENTRICULAR PREMATURE COMPLEX CONSIDER ANTEROSEPTAL INFARCT NONSPECIFIC T ABNORMALITIES, INFERIOR LEADS : Confirmed by: Eleno Saavedra 19-Oct-2019 13:04:05
--- NOTE | 2019-10-19 16:41 | PDOC DISCHARGE SUMMARY ---
Impression - Admit/DC Date/PCP Admission Date/Primary Care Provider: 10/18/19 15:55 RANJIT HUGHES MD Discharge Date: 10/19/19 - Discharge Diagnosis (1) TIA (transient ischemic attack) Is this a current diagnosis for this admission?: Yes (2) Hypertensive urgency Is this a current diagnosis for this admission?: Yes - Additional Information Resuscitation Status: Full Code Discharge Diet: As Tolerated Discharge Activity: Activity As Tolerated Referrals: JORGE CELAYA MD [ACTIVE STAFF] - 10/29/19 2:15 pm Prescriptions: Atorvastatin Calcium [Lipitor 20 mg Tablet] 20 mg PO QHS #30 tablet Amlodipine Besylate [Norvasc 5 mg Tablet] 5 mg PO DAILY #30 tablet Clopidogrel Bisulfate [Plavix 75 mg Tablet] 75 mg PO DAILY #30 tablet Home Medications: Amlodipine Besylate [Norvasc 5 mg Tablet] 5 mg PO DAILY #30 tablet 10/19/19 Atorvastatin Calcium [Lipitor 20 mg Tablet] 20 mg PO QHS #30 tablet 10/19/19 Clopidogrel Bisulfate [Plavix 75 mg Tablet] 75 mg PO DAILY #30 tablet 10/19/19 History of Present Illiness History of Present Illness: JOSE A MENON is a 64 year old female with no significant past medical history aside from a history of hypertension on amlodipine who was brought to the ER due to acute confusion and dizziness. 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 Reportedly, she was assisted by staff and was found to have a very unsteady gait. She was also noted to be confused for a few minutes. Patient also initially reported left leg weakness which completely resolved after a few minutes. In the ER, she was noted to be hypertensive with eyes blood pressure at 187/78. She was ordered at her baseline in the ER. Upon encounter, she appears comfortable and is AO x4. She has a completely normal neurologic exam with no motor or sensory deficits. She does states she has not been taking her antihypertensives at home as she has not refilled her amlodipine for 3 days. Hospital Course Hospital Course: He was admitted for TIA and hypertensive urgency likely from noncompliance to antihypertensive at home. She was already at her baseline neurologically intact upon admission. MRI of the brain was unremarkable. Carotid Doppler was also unremarkable. Blood pressures were optimized. She has allergy to aspirin and reports breaking out in rashes with aspirin. She was started on Plavix and statin. Advised on strict compliance with her antihypertensives at home. Physical Exam Vital Signs: Temp Pulse Resp BP Pulse Ox 97.6 F 64 18 159/76 H 99 10/19/19 14:11 10/19/19 14:11 10/19/19 14:11 10/19/19 11:38 10/19/19 14:11 Intake & Output 10/18/19 10/19/19 10/20/19 06:59 06:59 06:59 Intake Total 600 Balance 600 Weight 188 lb 11.451 oz General appearance: PRESENT: no acute distress, well-developed, well-nourished Head exam: PRESENT: atraumatic, normocephalic Eye exam: PRESENT: conjunctiva pink, EOMI, PERRLA. ABSENT: scleral icterus Ear exam: PRESENT: normal external ear exam Mouth exam: PRESENT: moist, tongue midline Neck exam: ABSENT: carotid bruit, JVD, lymphadenopathy, thyromegaly Respiratory exam: PRESENT: clear to auscultation santiago. ABSENT: rales, rhonchi, wheezes Cardiovascular exam: PRESENT: RRR. ABSENT: diastolic murmur, rubs, systolic murmur Pulses: PRESENT: normal dorsalis pedis pul GI/Abdominal exam: PRESENT: normal bowel sounds, soft. ABSENT: distended, guarding, mass, organolmegaly, rebound, tenderness Rectal exam: PRESENT: deferred Extremities exam: PRESENT: full ROM. ABSENT: calf tenderness, clubbing, pedal edema Neurological exam: PRESENT: alert, awake, oriented to person, oriented to place, oriented to time, oriented to situation, CN II-XII grossly intact. ABSENT: motor sensory deficit Results Laboratory Results: WBC 5.1 10^3/uL (4.0-10.5) 10/18/19 14:24 RBC 4.63 10^6/uL (3.72-5.28) 10/18/19 14:24 Hgb 13.4 g/dL (12.0-15.5) 10/18/19 14:24 Hct 40.2 % (36.0-47.0) 10/18/19 14:24 MCV 87 fl (80-97) 10/18/19 14:24 MCH 29.0 pg (27.0-33.4) 10/18/19 14:24 MCHC 33.4 g/dL (32.0-36.0) 10/18/19 14:24 RDW 14.2 % (11.5-14.0) H 10/18/19 14:24 Plt Count 181 10^3/uL (150-450) 10/18/19 14:24 Lymph % (Auto) 38.1 % (13-45) 10/18/19 14:24 [place] % (Auto) 9.0 % (3-13) 10/18/19 14:24 Eos % (Auto) 2.0 % (0-6) 10/18/19 14:24 Baso % (Auto) 0.5 % (0-2) 10/18/19 14:24 Absolute Neuts (auto) 2.6 10^3/uL (1.7-8.2) 10/18/19 14:24 Absolute Lymphs (auto) 1.9 10^3/uL (0.5-4.7) 10/18/19 14:24 Absolute Monos (auto) 0.5 10^3/uL (0.1-1.4) 10/18/19 14:24 Absolute Eos (auto) 0.1 10^3/uL (0.0-0.6) 10/18/19 14:24 Absolute Basos (auto) 0.0 10^3/uL (0.0-0.2) 10/18/19 14:24 Seg Neutrophils % 50.4 % (42-78) 10/18/19 14:24 PT 13.3 SEC (11.4-15.4) 10/18/19 14:24 INR 1.01 10/18/19 14:24 APTT 30.0 SEC (23.5-35.8) 10/18/19 14:24 Sodium 139.3 mmol/L (137-145) 10/18/19 14:24 Potassium 4.1 mmol/L (3.6-5.0) 10/18/19 14:24 Chloride 104 mmol/L (98-107) 10/18/19 14:24 Carbon Dioxide 30 mmol/L (22-30) 10/18/19 14:24 Anion Gap 5 (5-19) 10/18/19 14:24 BUN 18 mg/dL (7-20) 10/18/19 14:24 Creatinine 0.91 mg/dL (0.52-1.25) 10/18/19 14:24 Est GFR ( Amer) > 60 (>60) 10/18/19 14:24 Est GFR (MDRD) Non-Af > 60 (>60) 10/18/19 14:24 Glucose 78 mg/dL (75-110) 10/18/19 14:24 POC Glucose 78 mg/dL (70-110) 10/19/19 11:38 Calcium 9.3 mg/dL (8.4-10.2) 10/18/19 14:24 Total Bilirubin 0.7 mg/dL (0.2-1.3) 10/18/19 14:24 Direct Bilirubin 0.0 mg/dL (0.0-0.4) 10/18/19 14:24 Neonat Total Bilirubin Not Reportable 10/18/19 14:24 Neonat Direct Bilirubin Not Reportable 10/18/19 14:24 Neonat Indirect Bili Not Reportable 10/18/19 14:24 AST 22 U/L (14-36) 10/18/19 14:24 ALT 15 U/L (<35) 10/18/19 14:24 Alkaline Phosphatase 76 U/L (38-126) 10/18/19 14:24 Creatine Kinase 88 U/L (30-135) 10/18/19 14:24 CK-MB (CK-2) 1.12 ng/mL (<4.55) 10/18/19 14:24 Troponin I < 0.012 ng/mL 10/18/19 14:24 Total Protein 7.7 g/dL (6.3-8.2) 10/18/19 14:24 Albumin 4.2 g/dL (3.5-5.0) 10/18/19 14:24 Triglycerides 93 mg/dL (<150) 10/18/19 14:24 Cholesterol 170.37 mg/dL (0-200) 10/18/19 14:24 LDL Cholesterol Direct 106 mg/dL (<100) H 10/18/19 14:24 VLDL Cholesterol 19.0 mg/dL (10-31) 10/18/19 14:24 HDL Cholesterol 53 mg/dL (>40) 10/18/19 14:24 Urine Color YELLOW 10/18/19 14:55 Urine Appearance SLIGHTLY-CLOUDY 10/18/19 14:55 Urine pH 6.0 (5.0-9.0) 10/18/19 14:55 Ur Specific [place] 1.011 10/18/19 14:55 Urine Protein NEGATIVE mg/dL (NEGATIVE) 10/18/19 14:55 Urine Glucose (UA) NEGATIVE mg/dL (NEGATIVE) 10/18/19 14:55 Urine Ketones NEGATIVE mg/dL (NEGATIVE) 10/18/19 14:55 Urine Blood SMALL (NEGATIVE) H 10/18/19 14:55 Urine Nitrite NEGATIVE (NEGATIVE) 10/18/19 14:55 Urine Bilirubin NEGATIVE (NEGATIVE) 10/18/19 14:55 Urine Urobilinogen NEGATIVE mg/dL (<2.0) 10/18/19 14:55 Ur Leukocyte Esterase SMALL (NEGATIVE) H 10/18/19 14:55 Urine WBC (Auto) 1 /HPF 10/18/19 14:55 Urine RBC (Auto) 1 /HPF 10/18/19 14:55 Squamous Epi Cells Auto 2 /HPF 10/18/19 14:55 Urine Mucus (Auto) RARE /LPF 10/18/19 14:55 Urine Ascorbic Acid NEGATIVE (NEGATIVE) 10/18/19 14:55 Urine Opiates Screen NEGATIVE 10/18/19 14:55 Urine Methadone Screen NEGATIVE 10/18/19 14:55 Ur Barbiturates Screen NEGATIVE 10/18/19 14:55 Ur Phencyclidine Scrn NEGATIVE 10/18/19 14:55 Ur Amphetamines Screen NEGATIVE 10/18/19 14:55 U Benzodiazepines Scrn NEGATIVE 10/18/19 14:55 Urine Cocaine Screen NEGATIVE 10/18/19 14:55 U Marijuana (THC) Screen NEGATIVE 10/18/19 14:55 10/18/19 14:24 CK-MB (CK-2) 1.12 Troponin I < 0.012 Impressions: Carotid Doppler Study 10/18/19 00:00 IMPRESSION: NO HEMODYNAMICALLY SIGNIFICANT STENOSIS. Chest X-Ray 10/18/19 14:00 IMPRESSION: NO ACUTE RADIOGRAPHIC FINDING IN THE CHEST. Head CT 10/18/19 14:00 IMPRESSION: NORMAL BRAIN CT WITHOUT CONTRAST. EVIDENCE OF ACUTE STROKE: NO. Head MRI 10/18/19 14:45 IMPRESSION: NORMAL MRI OF THE BRAIN WITHOUT INTRAVENOUS GADOLINIUM CONTRAST. EVIDENCE OF ACUTE STROKE: NO. Stroke Is this a Stroke Patient?: No Acute Heart Failure - Is this a Heart Failure Patient?: No
== END 2019-10-19 14:45 | disposition home or self-care (01) ==
LOC: ER 13:54 → EH 15:55 → INTOOBSV 15:55 → 3N 20:27
PROVIDERS: ADMIT Internal Medicine; ATTEND Internal Medicine
DX: G45.9 Transient cerebral ischemic attack, unspecified (principal); I16.0 Hypertensive urgency; T46.1X6A Underdosing of calcium-channel blockers, initial encounter; Z91.128 Patient's intentional underdosing of medication regimen for other reason; Z79.899 Other long term (current) drug therapy; Z88.6 Allergy status to analgesic agent; R53.1 Weakness; R26.89 Other abnormalities of gait and mobility
CPT/HCPCS: 93005; 99285; 96374; 36415; 82553; 82962 ×2; 82550; 85025; 85610; 85730; 80053; 81001; 84484; 80307; 80061; 93880; 70551; 71045; 70450; 93010; G0378 ×3; J1644 ×2; J3490 ×3

== ENCOUNTER 2019-10-22 08:32 | Emergency (ER) | payer BC ==
[2019-10-22] MEDS ORDERED: MECLIZINE HCL 25 MG TABLET PO ONE (10:39)
[2019-10-22 11:17] LABS: ABSOLUTE EOSINOPHILS # (AUTO) 0.1 10^3/uL (0.0-0.6); ABSOLUTE LYMPHOCYTES (AUTO) 1.8 10^3/uL (0.5-4.7); ABSOLUTE MONOCYTES (AUTO) 0.6 10^3/uL (0.1-1.4); ABSOLUTE NEUT (AUTO) 3.1 10^3/uL (1.7-8.2); BASOPHILS % (AUTO) 0.4 % (0-2); EOSINOPHILS % (AUTO) 1.9 % (0-6); HEMATOCRIT 42.1 % (36.0-47.0); LYMPHOCYTES % (AUTO) 31.7 % (13-45); MEAN CORPUSCULAR HEMOGLOBIN 28.8 pg (27.0-33.4); MEAN CORPUSCULAR HGB CONC 33.3 g/dL (32.0-36.0); MEAN CORPUSCULAR VOLUME 87 fl (80-97); MONOCYTES % (AUTO) 11.2 % (3-13); PLATELET COUNT 202 10^3/uL (150-450); RED BLOOD COUNT 4.87 10^6/uL (3.72-5.28); RED CELL DISTRIBUTION WIDTH 14.2 % (11.5-14.0); SEGMENTED NEUTROPHILS % (AUTO) 54.8 % (42-78); TOTAL CELLS COUNTED % (AUTO) 100 %; WHITE BLOOD COUNT 5.7 10^3/uL (4.0-10.5)
[2019-10-22 11:38] LABS: ALKALINE PHOSPHATASE 79 U/L (38-126); ANION GAP 5 (5-19); ASPARTATE AMINO TRANSFERASE 29 U/L (14-36); BILIRUBIN,TOTAL 0.3 mg/dL (0.2-1.3); BLOOD UREA NITROGEN 17 mg/dL (7-20); CALCIUM 9.5 mg/dL (8.4-10.2); CARBON DIOXIDE 30 mmol/L (22-30); CHLORIDE 107 mmol/L (98-107); CREATINE KINASE 43 U/L (30-135); POTASSIUM 4.3 mmol/L (3.6-5.0); TOTAL PROTEIN 7.4 g/dL (6.3-8.2)
[2019-10-22 11:41] LABS: GLUCOSE 67 mg/dL (75-110)
[2019-10-22 11:48] LABS: APPEARANCE,URINE CLEAR; BILIRUBIN,URINE NEGATIVE (NEGATIVE); COLOR,URINE YELLOW; GLUCOSE, URINE NEGATIVE (NEGATIVE); KETONES,URINE NEGATIVE (NEGATIVE); LEUKOCYTE ESTERASE,URINE TRACE (NEGATIVE); NITRITE,URINE NEGATIVE (NEGATIVE); PROTEIN,URINE NEGATIVE (NEGATIVE); UROBILINOGEN,URINE NEGATIVE mg/dL (<2.0)
[2019-10-22 13:06] VITALS: BP 146/68
--- NOTE | 2019-10-22 15:15 | EKG REPORT ---
SEVERITY:- ABNORMAL ECG - SINUS RHYTHM FIRST DEGREE AV BLOCK ABNRM R PROG, CONSIDER ASMI OR LEAD PLACEMENT : Confirmed by: Cyndy Neff MD 22-Oct-2019 15:15:26
--- NOTE | 2019-10-22 20:13 | ER Document Report ---
Entered by TOM ORANTES SCRIBE 10/22/19 1035 Acting as scribe for:FIDELIA WHITNEY MD ED General - General Chief Complaint: General Weakness Stated Complaint: WEAKNESS,LIGHTHEADED Time Seen by Provider: 10/22/19 10:13 Primary Care Provider: JORGE CELAYA MD [Primary Care Provider] - Follow up tomorrow Information source: Patient Notes: 64 year old female presents to the emergency department complaining of dizziness and weakness since last visit four days ago. Patient reports that she feels dizzy with standing up fast and weak in the legs. Patient states that it "takes awhile for legs to get working" after standing. Patient denies feeling dizzy when supine and getting up slowly. TRAVEL OUTSIDE OF THE [place] IN LAST 30 DAYS: No - Related Data Allergies/Adverse Reactions: aspirin [Aspirin] Allergy (Verified 10/22/19 08:52) Penicillins Allergy (Verified 10/22/19 08:52) Home Medications: atorvastatin. amlodipine. 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 Family History: Reviewed & Not Pertinent Patient has suicidal ideation: No Patient has homicidal ideation: No - Past Medical History Cardiac Medical History: Reports: Hx Hypertension Past Surgical History: Reports: Hx Tubal Ligation - Immunizations Hx Diphtheria, Pertussis, Tetanus Vaccination: Yes Review of Systems - Review of Systems Constitutional: See HPI, Weakness EENT: No symptoms reported Cardiovascular: See HPI, Dizziness, Lightheaded Respiratory: No symptoms reported Gastrointestinal: No symptoms reported Genitourinary: No symptoms reported Female Genitourinary: No symptoms reported Musculoskeletal: No symptoms reported Skin: No symptoms reported Hematologic/Lymphatic: No symptoms reported Neurological/Psychological: No symptoms reported -: Yes All other systems reviewed and negative Physical Exam - Vital signs Vitals: Temp Pulse Resp BP Pulse Ox 98.4 F 73 18 154/69 H 96 10/22/19 08:36 10/22/19 08:36 10/22/19 08:36 10/22/19 08:36 10/22/19 08:36 - Notes Notes: General: Alert, appears well. HEENT: Normocephalic. Atraumatic. PERRLA. Extraocular movements intact. Oropharynx clear. Halliday-hallpike test results in mild dizziness. Neck: Supple. Respiratory: No respiratory distress. Abdominal: Normal Inspection. No distension. Extremities: Moves all four extremities. Neurological: Normal cognition. AAOx4. Normal speech. Psychological: Normal affect. Normal Mood. Skin: Warm. Dry. Normal color. Course - Re-evaluation Re-evalutation: 10/22/19 12:27 Patient reports she is feeling better. I had her sit up and look about rapidly, she is smiling and states she can tell a difference after the Antivert. I ashwin pect the dizzy sensation she was having may be some mild vertigo so we will put her on Antivert. Her blood pressure is 143/71, she tells me she takes her amlodipine in the morning. She is instructed to be sure she takes it tomorrow morning, and then when she sees Dr. Celaya for her appointment about noon, he can see if she may need a higher dose of this medication. - Vital Signs Vital signs: Temp Pulse Resp BP Pulse Ox 98.4 F 73 18 171/81 H 96 10/22/19 08:36 10/22/19 08:36 10/22/19 08:36 10/22/19 11:33 10/22/19 08:36 - Laboratory Result Diagrams: 10/22/19 10:55 10/22/19 10:55 Laboratory results interpreted by me: 10/22/19 10/22/19 10/22/19 10:55 10:55 11:12 RDW 14.2 H Glucose 67 L Ur Leukocyte Esterase TRACE H - EKG Interpretation by La EKG shows normal: Sinus rhythm, Rosanky, Intervals, QRS Complexes, ST-T Waves Rate: Normal - 51 Heart block present: 1st Degree When compared to previous EKG there are: No significant change Discharge - Discharge Clinical Impression: Vertigo, Dizziness High blood pressure Qualifiers: Hypertension type: essential hypertension Qualified Code(s): I10 - Essential (primary) hypertension Condition: Stable Disposition: HOME, SELF-CARE Additional Instructions: Vertigo: You MAY have been experiencing episodes of vertigo -- a whirling dizziness which may be accompanied by nausea and vomiting or staggering. Vertigo is often caused by an irritation of the inner ear, in which case it is called labyrinthitis. It can also be a symptom of a degenerating inner ear, nerve damage, or brain injury. Your physician has evaluated you to determine whether any further testing is necessary. Vertigo is often treated with dramamine or meclizine. These medications are helpful, but stronger medication may be needed if you are vomiting. Rest in bed. You should not drive or operate machinery until completely better. It may take one to three weeks for recovery. If there are new symptoms, such as decreased hearing or vision, severe headache, weakness or faintness, or confusion, call the physician. Some of the dizzy sensation you are experiencing when you get up is probably due to vertigo. It is unlikely that your blood pressure is causing those symptoms. Your symptoms did seem to improve some with the Antivert which is medication used for vertigo. Continue taking the vertigo for dizziness if needed. Your blood pressure does continue to run a little bit high. Be sure to take your blood pressure medication in the morning and follow-up with Dr. Celaya for your regularly scheduled appointment tomorrow. RETURN TO THE EMERGENCY ROOM IF ANY NEW OR WORSENING SYMPTOMS. Prescriptions: Meclizine HCl [Antivert 25 mg Tablet] 25 mg PO TID PRN #20 tablet PRN Reason: Forms: Return to Work Referrals: JORGE CELAYA MD [Primary Care Provider] - Follow up tomorrow Scribe Attestation: 10/22/19 11:18 I personally performed the services described in the documentation, reviewed and edited the documentation which was dictated to the scribe in my presence, and it accurately records my words and actions. I personally performed the services described in the documentation, reviewed and edited the documentation which was dictated to the scribe in my presence, and it accurately records my words and actions.
== END 2019-10-22 13:00 | disposition home or self-care (01) ==
LOC: ER 08:32
DX: R42 Dizziness and giddiness (principal); R53.1 Weakness; I10 Essential (primary) hypertension; Z79.899 Other long term (current) drug therapy; Z88.8 Allergy status to other drugs, medicaments and biological substances; Z88.0 Allergy status to penicillin
CPT/HCPCS: 36415; 80053; 81001; 82550; 84443; 85025; 93005; 93010; 99283

== ENCOUNTER → 2019-10-31 | Outpatient (CLI) | payer BC ==
[~2019-10-31] MED LIST changes: -DIAZEPAM 5 MG TABLET ONE; +REGADENOSON INJ 0.4 MG/5 ML DISP.SYRIN IV ONE
--- NOTE | 2019-10-31 22:00 | DRAGON STRESS TEST REPORT ---
Intravenous Lexiscan Cardiolite stress test using single photon emmision computerized tomography. Date of procedure: 10/31/2019. Ordering Provider: Dr. Gustafson. Patient's status: In Patient. Indication: Abnormal EKG. Coronary risk factors: Age, hypertension, and dyslipidemia. Resting EKG: Sinus Rhythm. Poor R wave leads V1 to V6 nonspecific T changes inferior leads. Probable old anteroseptal IA. Stress EKG: No changes of ischemia. The patient had no chest pain or discomfort, and there were no arrhythmias seen. Reason for termination: Protocol. Conclusions: Normal EKG and hemodynamic response to IV Lexiscan. Nuclear data: At rest the patient was given 15.28 millicuries of technetium 99m sestamibi injected intravenously. As per protocol rest non gated SPECT images were obtained. Subsequently the patient was given intravenous Lexiscan at a dose of 0.4 mg in 5 mL intravenously, followed by flush with normal saline. Subsequently the stress dose of 44.1 millicuries of technetium 99m sestamibi was injected intravenously. As per protocol stress gated images were obtained. Nuclear interpretation: Review of images showed that there was a small area involving the left lateral apex which showed a mild perfusion defect in both the rest and stress images. This area had normal motion contraction and thickening by gated study. Hence there is soft tissue attenuation artifact. The rest of the segments of the myocardium had normal perfusion at rest, and normal perfusion post stress with IV Lexiscan. All segments of the myocardium had normal motion, contraction, and thickening by gated study. T. I D. ratio was normal at 1.12. There is no transient ischemic dilatation of the left ventricle. Computer read rest, and stress left ventricular ejection fraction were 71 %, and 73 %, respectively. Conclusion: 1. There is no scintigraphic evidence of Lexiscan induced myocardial ischemia. 2. There is no scintigraphic evidence of myocardial infarction/scar. 3. Small area of mild soft tissue attenuation artifact involving the left ventricle apex. Recommendations: Aggressive risk factor modification, and treating the underlying co- morbidities. MTDD
== END ==
LOC: RAD 06:45
PROVIDERS: ATTEND Internal Medicine Geriatric Medicine
DX: R94.31 Abnormal electrocardiogram [ECG] [EKG] (principal); E78.5 Hyperlipidemia, unspecified; I10 Essential (primary) hypertension; Z86.73 Personal history of transient ischemic attack (TIA), and cerebral infarction without residual deficits
CPT/HCPCS: 93017; 78452; A9500; J2785; Q9969

== ENCOUNTER → 2019-11-06 | Outpatient (CLI) | payer BC ==
--- NOTE | 2019-11-06 19:26 | XCELERA REPORT ---
[address] [address] Transthoracic Echocardiogram Report Name: JOSE A MENON Age: 64 yrs Gender: Female : 1955 Patient Status: Outpatient Patient Location: Study Date: 11/06/2019 09:10 AM Height: 67 in Weight: 190 lb BSA: 2.0 m2 Procedure: A complete two-dimensional transthoracic echocardiogram was performed (2D, M-mode, spectral and color flow Doppler). The study was technically adequate with some images being suboptimal in quality. Reason For Study: ABNORMAL EKG Ordering Physician: JORGE CELAYA Performed By: Harjit Ravi Interpretation Summary The left ventricular ejection fraction is normal. Doppler measurements suggest pseudonormalized left ventricular relaxation, which is associated with grade II/IV or mild to moderate diastolic dysfunction There is mild concentric left ventricular hypertrophy. The left ventricle is grossly normal size. Wall motion cannot be accurately commented on, but no definite regional wall motion abnormalities noted. The right ventricular systolic function is normal. The left atrium is mildly dilated. The right atrium is normal in size There is a mild amount of mitral regurgitation There is no mitral valve stenosis. No aortic regurgitation is present. There is no aortic valve stenosis There is a trace to mild amount of tricuspid regurgitation Right ventricular systolic pressure is at the upper limits of normal The aortic root is not well visualized but is probably normal size. The inferior vena cava appeared normal and decreased > 50% with respiration (RAP 5-10 mmHg) There is no pericardial effusion. MMode/2D Measurements & Calculations RVDd: 2.8 cm LVIDd: 4.9 cm FS: 39.9 % Ao root diam: 2.7 cm IVSd: 0.90 cm LVIDs: 2.9 cm EDV(Teich): Ao root area: 110.3 ml LVPWd: 0.95 cm 5.5 cm2 ESV(Teich): 32.6 mlLA dimension: 3.1 cm EF(Teich): 70.4 % LVLd ap4: 7.4 cm SV(MOD-sp4): EDV(MOD-sp4): 57.0 ml 87.0 ml LVLs ap4: 6.1 cm ESV(MOD-sp4): 30.0 ml EF(MOD-sp4): 65.5 % Doppler Measurements & Calculations MV E max reshma: MV P1/2t max reshma: Ao V2 max: LV V1 max P.1 cm/sec 108.1 cm/sec 142.3 cm/sec 5.8 mmHg MV A max reshma: MV P1/2t: 83.2 msec Ao max PG: LV V1 max: 91.8 cm/sec 8.1 mmHg 120.9 cm/sec MVA(P1/2t): 2.6 cm2 MV E/A: 1.2 MV dec slope: LV dP/dt: 380.3 cm/sec2 649.0 mmHg/s MV dec time: 0.21 sec PA V2 max: PI end-d reshma: TR max reshma: MV P1/2t-pr_phl: 100.7 cm/sec 73.3 cm/sec 218.0 cm/sec 83.2 msec PA max P.1 mmHg TR max P.0 mmHg Left Ventricle The left ventricle is grossly normal size. There is mild concentric left ventricular hypertrophy. The left ventricular ejection fraction is normal. Doppler measurements suggest pseudonormalized left ventricular relaxation, which is associated with grade II/IV or mild to moderate diastolic dysfunction. Wall motion cannot be accurately commented on, but no definite regional wall motion abnormalities noted. Right Ventricle The right ventricle is grossly normal size. The right ventricular systolic function is normal. Atria The right atrium is normal in size. The left atrium is mildly dilated. Interarterial septum not well visualized and not well dopplered. Cannot comment on ASD/PFO presence. Mitral Valve The mitral valve is grossly normal. There is no mitral valve stenosis. There is a mild amount of mitral regurgitation. Aortic Valve The aortic valve is grossly normal. There is no aortic valve stenosis. No aortic regurgitation is present. Tricuspid Valve The tricuspid valve is not well visualized, but is grossly normal. There is no tricuspid stenosis. There is a trace to mild amount of tricuspid regurgitation. Right ventricular systolic pressure is at the upper limits of normal. Pulmonic Valve The pulmonic valve is not well visualized. Great Vessels The aortic root is not well visualized but is probably normal size. The inferior vena cava appeared normal and decreased > 50% with respiration (RAP 5-10 mmHg). Effusions There is no pericardial effusion. : JORGE CELAYA Shyamal
== END ==
LOC: SP 08:41
PROVIDERS: ATTEND Internal Medicine Geriatric Medicine
DX: R94.31 Abnormal electrocardiogram [ECG] [EKG] (principal); I10 Essential (primary) hypertension; E78.5 Hyperlipidemia, unspecified; Z86.73 Personal history of transient ischemic attack (TIA), and cerebral infarction without residual deficits
CPT/HCPCS: 93306

== ENCOUNTER → 2020-06-11 | Outpatient (CLI) | payer BC ==
[2020-06-12 10:37] LABS: HEPATITIS C VIRUS AB 0.1 s/co ratio (0.0-0.9)
== END ==
LOC: OD 08:55
PROVIDERS: ATTEND Internal Medicine Geriatric Medicine
DX: Z11.59 Encounter for screening for other viral diseases (principal); Z11.4 Encounter for screening for human immunodeficiency virus [HIV]
CPT/HCPCS: 36415; 86701; 86803; 86804

== ENCOUNTER → 2020-07-24 | Outpatient (CLI) | payer BC ==
--- NOTE | 2020-07-24 11:00 | WOMENS IMAGING REPORT ---
EXAM DESCRIPTION: 3D SCREENING MAMMO BILAT IMAGES COMPLETED DATE/TIME: 07/24/2020 9:23 am REASON FOR STUDY: Z12.31 ENCOUNTER FOR SCREENING MAMMOGRAM FOR MALIGNANT NEOPLASM OF BREAST Z12.31 ENCNTR SCREEN MAMMOGRAM FOR MALIGNANT NEOPLASM OF OTIS COMPARISON: Multiple since 2013 EXAM PARAMETERS: Views: Standard craniocaudal and mediolateral oblique views of each breast recorded using digital acquisition and breast tomosynthesis. Read with the assistance of CAD. .[facility] - [employer] Sales Representative Version 9.2 LIMITATIONS: None. FINDINGS: No suspicious masses, suspicious calcifications or architectural distortion. No areas of c oncern. IMPRESSION: NEGATIVE MAMMOGRAM. BIRADS 1. BREAST DENSITY: a. The breasts are almost entirely fatty. BIRAD: ASSESSMENT: 1 NEGATIVE RECOMMENDATION: ROUTINE SCREENING Please continue yearly bilateral screening mammography/tomosynthesis in July 2021 COMMENT: The patient has been notified of the results by letter per MQSA requirements. Additional no tification policies are in place for contacting patient with suspicious or incomplete findings. Quality ID #[id number]: The [employer] recommends an annual screening mammogram for women aged 40 years or over. This facility utilizes a reminder system to ensure that all patients receive reminder letters, and/or direct phone calls for appointments. This includes reminders for routine scr eening mammograms, diagnostic mammograms, or other Breast Imaging Interventions when appropriate. Th is patient will be placed in the appropriate reminder system. TECHNICAL DOCUMENTATION: FINDING NUMBER: (1) ASSESSMENT: (1) JOB ID: [id number] 2010 [employer]- All Rights Reserved Reading location - IP/workstation name: [email or web address]
== END ==
LOC: WI 08:54
PROVIDERS: ATTEND Internal Medicine Geriatric Medicine
DX: Z12.31 Encounter for screening mammogram for malignant neoplasm of breast (principal)
CPT/HCPCS: 77063; 77067